=== PATIENT | female | born 1985 | race Caucasian/White ===

== ENCOUNTER 2018-03-04 09:44 | Inpatient (IN) ==
--- NOTE | 2018-03-04 10:43 | P.HPOB ---
History of Present Illness Service: Obstetrics Primary Care Physician: No Primary Care Physician Chief Complaint: admit to antepartum for further workup of cholestasis of History of Present Illness: 32 yo (history of twin vaginal delivery 07/2013) admitted due to new diagnosis of cholestasis of , is with di-di twins (product of IVF, as was first ) with EDC 04/19/18, 33w3d today. At office visit pt c/o severe itching of hands and feet, at that visit also new proteinuria on urine dip, concern for cholestasis of . Labs ordered, resulted today showing elevated bile acids 26.1 umol/L, elevated cholic acid 20 umol/L and elevated chenodeoxycholic acid, 6.1 umol/L. LFTs also abnormal with AST 342 U/L, ALT 462 U/L, alk phos 204 U/L. Pt was started on oral ursodiol BID last week, today pt states this has not improved symptoms, if anything she feels worse. Sent to L&D for AP admission, steroid administration, MFM consult , growth scan and BPP. Weeks Gestation:: 33 Para: 2 (di/di twins delivered vaginally 07/2013) : 1 Last menstrual period: 07/13/17 Total # of Miscarriage(s): 0 Total # of Abortions (Spontaneous & Elective): 0 - Inpatient Certification I certify that the inpatient services were ordered in accordance with Medicare regulations governing the order. This includes certification that hospital inpatient services are reasonable and necessary and in the case of services not specified as inpatient-only under 42 CFR 419.22(n), that they are appropriately provided as inpatient services in accordance to with the 2-midnight benchmark under 43 CFR 412.3(e) Estimated Total Length of Stay (Days): 7 Plans for Post Hospital Care: Home Review of Systems All other systems reviewed negative except as stated in HPI PMFSH - Medical History Medical History: Medical History (Last Updated 03/04/18 @ 10:37 by Lily Russell MD) History of infertility - Surgical History Surgical History: Surgical History (Last Updated 01/10/18 @ 13:06 by Reid Owens MD) Gastric bypass status for obesity History of tonsillectomy Hx of cholecystectomy - Social History I have reviewed the patient's Social History: Yes - Tobacco History Second Hand Smoke Exposure: No Tobacco Use In Past 30 Days: No Smoking Status: Never smoker - Alcohol History How Often Do You Have a Drink Containing Alcohol: Never - Substance Use History Substance History: No History of Abuse - Travel History History of Recent Travel: No Recent Travel in the [place] Within the Last 8 Weeks: No Recent Travel Out of the Country Within the Last 8 Weeks: No Medications and Allergies Active Medications: Active Medications Acetaminophen (Tylenol) 650 mg PO Q4H PRN PRN Reason: PAIN SCALE 1 TO 5 Lactated Ringer's (Lr 1000 Ml Inj) 1,000 mls @ 100 mls/hr IV.CONT .Q10H DEE Ondansetron HCl (Zofran Odt) 4 mg PO Q6H PRN PRN Reason: NAUSEA OR VOMITING Vit/Calcium/Iron/Folic Ac (Stuartnatal Plus 3) 1 tab PO DAILY DEE Sodium Chloride (Ns Flush) 2 ml IV.FLUSH BID DEE Sodium Chloride (Ns Flush) 2 ml IV.FLUSH PRN PRN PRN Reason: FLUSH AFTER USING IV ACCESS Allergies Allergy/AdvReac Type Severity Reaction Status Date / Time No Known Allergies Allergy Unknown none Uncoded 03/04/18 10:08 Home Medications Medication Instructions Recorded Confirmed Type ursodiol BID 03/04/18 History Exam Vital signs: Intake & Output 03/03/18 03/04/18 03/04/18 18:59 06:59 18:59 Weight 225 kg - Constitutional mild distress (from itching) - Routine HEENT Exam Head: Present: normocephalic, atraumatic Eye: Present: EOMI ENT: Present: mucous membranes moist, dentition normal - Routine Neck Exam Present: supple, full ROM - Routine Chest/Breast/Axilla Exam Chest wall: Absent: tenderness, mass - Routine Respiratory Exam Absent: accessory muscle use, respiratory distress - Routine Cardiovascular Exam Present: RRR. Absent: bradycardia - Routine Abdominal Exam Comments: gravid, larger than dates c/w twins - Routine Extremities Exam Absent: cyanosis, clubbing - Routine Skin Exam Present: intact. Absent: jaundice - Routine Neurological Exam Present: alert, oriented X3 Results - Labs Group B Strep: unknown Caprini VTE Risk Assessment Caprini VTE Risk Assessment: No/Low Risk (score <= 1) VTE Pharmacological Exception Reason: Epidural catheter Caprini Risk Assessment Model: Point Value = 1 Point Value = 2 Point Value = 3 Point Value = 5 Age 41-60 Minor surgery BMI > 25 kg/m2 Swollen legs Varicose veins or History of unexplained or recurrent spontaneous Oral contraceptives or hormone replacement Sepsis (< 1 month) Serious lung disease, including pneumonia (< 1 month) Abnormal pulmonary function Acute myocardial infarction Congestive heart failure (< 1 month) History of inflammatory bowel disease Medical patient at bed rest Age 61-74 Arthroscopic surgery Major open surgery (> 45 min) Laparoscopic surgery (> 45 min) Malignancy Confined to bed (> 72 hours) Immobilizing plaster cast Central venous access Age >= 75 History of VTE Family history of VTE Factor V Leiden Prothrombin [id number] Lupus anticoagulant Anticardiolipin antibodies Elevated serum homocysteine Heparin-induced thrombocytopenia Other congenital or acquired thrombophilia Stroke (< 1 month) Elective arthroplasty Hip, pelvis, or leg fracture Acute spinal cord injury (< 1 month) Prophylaxis Regimen: Total Risk Factor Score Risk Level Prophylaxis Regimen 0-1 Low Early ambulation 2 Moderate Order ONE of the following: *Sequential Compression Device (SCD) *Heparin 5000 units SQ BID 3-4 Higher Order ONE of the following medications: *Heparin 5000 units SQ TID *Enoxaparin/Lovenox 40 mg SQ daily (WT < 150 kg, CrCl > 30 mL/min) *Enoxaparin/Lovenox 30 mg SQ daily (WT < 150 kg, CrCl > 10-29 mL/min) *Enoxaparin/Lovenox 30 mg SQ BID (WT < 150 kg, CrCl > 30 mL/min) AND/OR *Sequential Compression Device (SCD) 5 or more Highest Order ONE of the following medications: *Heparin 5000 units SQ TID (Preferred with Epidurals) *Enoxaparin/Lovenox 40 mg SQ daily (WT < 150 kg, CrCl > 30 mL/min) *Enoxaparin/Lovenox 30 mg SQ daily (WT < 150 kg, CrCl > 10-29 mL/min) *Enoxaparin/Lovenox 30 mg SQ BID (WT < 150 kg, CrCl > 30 mL/min) AND *Sequential Compression Device (SCD) Assessment and Plan - Diagnosis (1) Cholestasis during Code(s): O26.619 - Liver and biliary tract disorders in , unspecified trimester; K83.1 - Obstruction of bile duct Status: Acute (2) Dichorionic diamniotic twin gestation Code(s): O30.049 - Twin , dichorionic/diamniotic, unspecified trimester Status: Acute (3) History of in vitro fertilization Code(s): Z98.890 - Other specified postprocedural states Status: Chronic - Plan 32 yo with di/di twin at 33w4d, EDC 04/18/18 by IVF, admit for cholestasis of with severe symptoms. 1) cholestasis of : repeat labs ordered on admission, bile acids 26.1 on 02/25/18, AST 342, ALT 463; d/w pt risks to fetuses and recommendation for early delivery, based on severity may need to be delivered within next few days ; MFM consult ordered, continue Urosodiol and increase to TID; NPO for now pending MFM recommendations; betamethasone ordered 2) di/di twin , product of IVF: this is pt's second successful di/di twin IVF ; last growth 02/19/18 in office showed A 52%tile(vertex) & B 69%tile (breech); pt desires with BTL, consents signed 3) GBS unknown, will order on admission 4) PPX: SCDs ordered 5) status: NST pending on admission, BPP ordered, for growth scan with MFM today 6) dispo: does not meet discharge criteria
[2018-03-04] MEDS: Betamethasone Sod Phos/Acetate Inj 30 MG/5 ML Vial IM SCH (11:42)
[2018-03-04 12:20] LABS: Baso % (Auto) 0.2 % (0.0-2.0); Eos % (Auto) 0.4 % (0.0-4.0); Hematocrit 44.6 % (35.0-46.0); Hemoglobin 14.9 gm/dL (11.6-15.3); Lymph # (Auto) 1.7 th/mm3 (1.0-4.8); Lymph % (Auto) 19.9 % (9.0-44.0); Mean Corpuscular HGB Conc 33.4 % (32.0-36.0); Mean Corpuscular Hemoglobin 31.6 pg (27.0-34.0); Mean Corpuscular Volume 94.7 fL (80.0-100.0); Mean Platelet Volume 9.9 fL (7.0-11.0); Mono # (Auto) 0.5 th/mm3 (0.0-0.9); Neut # (Auto) 6.3 th/mm3 (1.8-7.7); Neut % (Auto) 73.5 % (16.0-70.0); Platelet Count 188 th/mm3 (150-450); Red Blood Count 4.71 mil/mm3 (4.00-5.30); Red Cell Distribution Width 14.2 % (11.6-17.2); White Blood Count 8.6 th/mm3 (4.0-11.0)
[2018-03-04 12:44] LABS: Albumin 2.3 g/dL (3.4-5.0); Anion Gap 10 meq/L (5-15); Aspartate Aminotransferase 271 U/L (15-37); Blood Urea Nitrogen 4 mg/dL (7-18); Calcium 8.7 mg/dL (8.5-10.1); Carbon Dioxide 22.9 meq/L (21.0-32.0); Chloride 105 meq/L (98-107); Glomerular Filtration Rate Greater Than 89 mL/min (>89); Glucose,Random 64 mg/dL (74-106); Potassium 4.6 meq/L (3.5-5.1); Sodium 138 meq/L (136-145)
[2018-03-04 12:45] LABS: Alanine Aminotransferase 389 U/L (10-53); Uric Acid 4.6 mg/dl (2.6-6.0)
[2018-03-04 12:47] LABS: Alkaline Phosphatase 223 U/L (45-117); Total Protein 6.7 g/dL (6.4-8.2)
[2018-03-04 12:58] LABS: Bacteria,Urine Occasional /hpf; Bilirubin,Urine Negative (Negative); Clarity,Urine Hazy (Clear); Color,Urine Yellow (Yellw/Straw); Glucose,Urine (UA) Negative (Negative); Leukocyte Esterase,Urine Negative (Negative); Mucus,Urine Few /lpf (Occasional); Nitrite,Urine Negative (Negative); Specific Gravity,Urine 1.002 (1.002-1.035); Squamous Epithelial Cell,Urine 3 /hpf (0-5)
[2018-03-04 12:59] LABS: Amphetamine Urine With Conf Neg (Neg); Benzodiazepine Urine With Conf Neg (Neg)
[2018-03-04] MEDS: Acetaminophen 325 MG Tablet PO PRN ×2 (15:25→21:24)
--- NOTE | 2018-03-04 17:35 | P.OBGPN ---
To bedside to review plan of care with patient and family, at bedside also. LFTs remain elevated, pt remains symptomatic despite oral ursodiol bid, now tid. BPP 8/8 x 2 and reactive NST x 2 today, currently on continuous monitoring. Fetus A (female) 14%tile, 23% discordance on growth sono today. A vertex, B transverse. Pt desires and tubal ligation for delivery mode. Michel irregularly, SVE closed/50/-2 midposition. NICU team has recommended IV magnesium sulfate for neuroprotection, ordered. Pt tearful at thought of early delivery but voices understanding of severity of cholestasis and risk to both maternal and health. Consents signed for surgery, likely for AM with Dr. Leach. For MFM consult 03/05/18 AM.
--- NOTE | 2018-03-04 18:37 | P.OBANTE ---
Subjective Interval History: reviewed plans for surgery -- section at 10 am on unless desires sooner has consult in the am doing better with all this information now that sister is here. reveiwed expectations of surgery. Objective Vital Signs and I&O: Vital Signs 03/04/18 10:15 03/04/18 10:45 03/04/18 11:00 Temperature 98.5 F Pulse Rate 87 Respiratory Rate 18 17 Blood Pressure 123/84 03/04/18 12:30 03/04/18 13:27 03/04/18 14:30 Temperature Pulse Rate Respiratory Rate 19 18 17 Blood Pressure 03/04/18 14:41 03/04/18 16:30 03/04/18 17:00 Temperature 97.9 F Pulse Rate 139 H Respiratory Rate 18 17 18 Blood Pressure 135/87 Intake & Output 03/03/18 03/04/18 03/04/18 18:59 06:59 18:59 Weight 102.058 kg Lab and Micro Results: Laboratory Results - last 24 hr 03/04/18 03/04/18 03/04/18 10:43 10:43 11:06 WBC 8.6 RBC 4.71 Hgb 14.9 Hct 44.6 MCV 94.7 MCH 31.6 MCHC 33.4 RDW 14.2 Plt Count 188 MPV 9.9 Neut % (Auto) 73.5 H Lymph % (Auto) 19.9 [place] % (Auto) 6.0 Eos % (Auto) 0.4 Baso % (Auto) 0.2 Neut # (Auto) 6.3 Lymph # (Auto) 1.7 [place] # (Auto) 0.5 Eos # (Auto) 0.0 Baso # (Auto) 0.0 WBC Differential . Differential Comment Auto diff final Sodium 138 Potassium 4.6 Chloride 105 Carbon Dioxide 22.9 Anion Gap 10 BUN 4 L Creatinine 0.49 L Estimated GFR Greater than 89 Random Glucose 64 L Uric Acid 4.6 Calcium 8.7 Total Bilirubin 0.7 Direct Bilirubin 0.4 H Indirect Bilirubin 0.3 AST 271 H ALT 389 H Alkaline Phosphatase 223 H Total Protein 6.7 Albumin 2.3 L Urine Color Urine Clarity Urine pH Ur Specific [place] Urine Protein Urine Glucose (UA) Urine Ketones Urine Occult Blood Urine Nitrate Urine Bilirubin Urine Urobilinogen Ur Leukocyte Esterase Urine RBC Urine WBC Ur Squamous Epith Cells Urine Bacteria Urine Mucus Micro UA Comment Ur Microscopic Review Urine Culture Comments Urine Opiates Screen Ur Barbiturates Screen Ur Amphetamine Screen U Benzodiazepines Scrn Urine Cocaine Screen U Cannabinoids Screen Group B Strep (PCR) Negative 03/04/18 03/04/18 11:06 11:06 WBC RBC Hgb Hct MCV MCH MCHC RDW Plt Count MPV Neut % (Auto) Lymph % (Auto) [place] % (Auto) Eos % (Auto) Baso % (Auto) Neut # (Auto) Lymph # (Auto) [place] # (Auto) Eos # (Auto) Baso # (Auto) WBC Differential Differential Comment Sodium Potassium Chloride Carbon Dioxide Anion Gap BUN Creatinine Estimated GFR Random Glucose Uric Acid Calcium Total Bilirubin Direct Bilirubin Indirect Bilirubin AST ALT Alkaline Phosphatase Total Protein Albumin Urine Color Yellow Urine Clarity Hazy H Urine pH 7.0 Ur Specific [place] 1.002 Urine Protein Negative Urine Glucose (UA) Negative Urine Ketones Negative Urine Occult Blood Negative Urine Nitrate Negative Urine Bilirubin Negative Urine Urobilinogen Less than 2 Ur Leukocyte Esterase Negative Urine RBC Less than 1 Urine WBC 1 Ur Squamous Epith Cells 3 Urine Bacteria Occasional H Urine Mucus Few H Micro UA Comment Culture not ind Ur Microscopic Review Not Reportable Urine Culture Comments Culture not ind Urine Opiates Screen Neg Ur Barbiturates Screen Neg Ur Amphetamine Screen Neg U Benzodiazepines Scrn Neg Urine Cocaine Screen Neg U Cannabinoids Screen Neg Group B Strep (PCR) Physical Exam: GENERAL: Well-nourished, well-developed patient. CARDIOVASCULAR: Regular rate and rhythm without murmurs, gallops, or rubs. RESPIRATORY: Breath sounds equal bilaterally. No accessory muscle use. ABDOMEN/GI: Abdomen soft, non-tender. Fundus: [-] GENITOURINARY: External Genitalia: intact and normal in appearance Cervix: [-] Dilatation: [-] Effacement: [-] Station: [-] Presentation: [-] Membranes: [-] Uterine Contractions: [-] FHT's: Category: [-] Baseline: [-] Reactive: [-] Variability: [-] Decels: [-] EXTREMITIES: No cyanosis or edema, non-tender, without signs of DVT. Assessment and Plan - Diagnosis (1) Cholestasis during Code(s): O26.619 - Liver and biliary tract disorders in , unspecified trimester; K83.1 - Obstruction of bile duct Status: Acute (2) Dichorionic diamniotic twin gestation Code(s): O30.049 - Twin , dichorionic/diamniotic, unspecified trimester Status: Acute (3) History of in vitro fertilization Code(s): Z98.890 - Other specified postprocedural states Status: Chronic - Plan 32 yo with di/di twin at 33w4d, EDC 04/18/18 by IVF, admit for cholestasis of with severe symptoms. 1) cholestasis of : repeat labs ordered on admission, bile acids 26.1 on 02/25/18, AST 342, ALT 463; d/w pt risks to fetuses and recommendation for early delivery, based on severity may need to be delivered within next few days ; MFM consult ordered, continue Urosodiol and increase to TID; NPO for now pending MFM recommendations; betamethasone ordered 2) di/di twin , product of IVF: this is pt's second successful di/di twin IVF ; last growth 02/19/18 in office showed A 52%tile(vertex) & B 69%tile (breech); pt desires with BTL, consents signed 3) GBS unknown, will order on admission 4) PPX: SCDs ordered 5) status: NST pending on admission, BPP ordered, for growth scan with MFM today 6) dispo: does not meet discharge criteria
[2018-03-04] MEDS: Mag Sulf/Water 40 gm/1000 ml 40 GM/1,000 ML BAG IV.CONT SCH (18:43)
[2018-03-04] MEDS ORDERED: Lidocaine 2% Jelly 5 ML Syringe TOPICAL SCH (22:15)
[2018-03-05] MEDS: Acetaminophen 325 MG Tablet PO PRN ×2 (01:28→15:03)
[2018-03-05] MEDS ORDERED: Morphine Inj 4 MG/ML Vial IV.PUSH ONE (05:01)
--- NOTE | 2018-03-05 05:01 | P.OBANTE ---
Subjective Interval History: I have a bad headache since on the magnesium. Tylenol does not work Babies are moving well No scotoma or RUQ pain. I am having a C/S tomorrow. Objective Vital Signs and I&O: Vital Signs 03/04/18 10:15 03/04/18 10:45 03/04/18 11:00 Temperature 98.5 F Pulse Rate 87 Respiratory Rate 18 17 Blood Pressure 123/84 03/04/18 12:30 03/04/18 13:27 03/04/18 14:30 Temperature Pulse Rate Respiratory Rate 19 18 17 Blood Pressure 03/04/18 14:41 03/04/18 16:30 03/04/18 17:00 Temperature 97.9 F Pulse Rate 139 H Respiratory Rate 18 17 18 Blood Pressure 135/87 03/04/18 18:50 03/04/18 18:55 03/04/18 19:00 Temperature 98.0 F Pulse Rate 121 H 105 H Respiratory Rate 17 Blood Pressure 122/88 03/04/18 19:05 03/04/18 19:10 03/04/18 19:15 Temperature Pulse Rate 103 H 109 H 102 H Respiratory Rate Blood Pressure 131/89 122/100 H 03/04/18 19:55 03/04/18 20:05 03/04/18 20:25 Temperature Pulse Rate 100 H 106 H 96 H Respiratory Rate 18 Blood Pressure 136/78 143/88 H 03/04/18 20:55 03/04/18 22:20 03/04/18 22:28 Temperature 98.1 F Pulse Rate 109 H 99 H 90 Respiratory Rate 16 Blood Pressure 140/85 133/79 03/04/18 22:35 03/04/18 22:40 03/04/18 22:45 Temperature Pulse Rate 106 H 110 H 112 H Respiratory Rate Blood Pressure 113/68 03/04/18 22:50 03/04/18 22:55 03/04/18 23:50 Temperature Pulse Rate 103 H 113 H 109 H Respiratory Rate Blood Pressure 126/76 03/05/18 00:00 03/05/18 00:10 03/05/18 00:15 Temperature Pulse Rate 94 H 110 H 105 H Respiratory Rate 18 Blood Pressure 140/70 03/05/18 00:25 03/05/18 00:40 03/05/18 00:45 Temperature Pulse Rate 97 H 116 H 92 H Respiratory Rate Blood Pressure 119/72 03/05/18 00:55 03/05/18 02:00 03/05/18 02:30 Temperature Pulse Rate 91 H 102 H 102 H Respiratory Rate Blood Pressure 120/83 136/87 140/84 03/05/18 03:00 03/05/18 04:00 Temperature Pulse Rate 122 H 88 Respiratory Rate Blood Pressure 133/83 130/80 Intake & Output 03/04/18 03/04/18 03/05/18 06:59 18:59 06:59 Intake Total 1000 / 1000 1000 / 1000 Balance 1000 / 1000 1000 / 1000 Weight 102.058 kg Intake: IV 1000 / 1000 1000 / 1000 LR 1000 mL Inj 1,000 ML @ 100 1000 / 1000 1000 / 1000 mls/hr IV.CONT .Q10H [facility] Rx[facility] [id number] Lab and Micro Results: Laboratory Results - last 24 hr 03/04/18 03/04/18 03/04/18 10:43 10:43 11:06 WBC 8.6 RBC 4.71 Hgb 14.9 Hct 44.6 MCV 94.7 MCH 31.6 MCHC 33.4 RDW 14.2 Plt Count 188 MPV 9.9 Neut % (Auto) 73.5 H Lymph % (Auto) 19.9 [place] % (Auto) 6.0 Eos % (Auto) 0.4 Baso % (Auto) 0.2 Neut # (Auto) 6.3 Lymph # (Auto) 1.7 [place] # (Auto) 0.5 Eos # (Auto) 0.0 Baso # (Auto) 0.0 WBC Differential . Differential Comment Auto diff final Sodium 138 Potassium 4.6 Chloride 105 Carbon Dioxide 22.9 Anion Gap 10 BUN 4 L Creatinine 0.49 L Estimated GFR Greater than 89 Random Glucose 64 L Uric Acid 4.6 Calcium 8.7 Total Bilirubin 0.7 Direct Bilirubin 0.4 H Indirect Bilirubin 0.3 AST 271 H ALT 389 H Alkaline Phosphatase 223 H Total Protein 6.7 Albumin 2.3 L Urine Color Urine Clarity Urine pH Ur Specific [place] Urine Protein Urine Glucose (UA) Urine Ketones Urine Occult Blood Urine Nitrate Urine Bilirubin Urine Urobilinogen Ur Leukocyte Esterase Urine RBC Urine WBC Ur Squamous Epith Cells Urine Bacteria Urine Mucus Micro UA Comment Ur Microscopic Review Urine Culture Comments Urine Opiates Screen Ur Barbiturates Screen Ur Amphetamine Screen U Benzodiazepines Scrn Urine Cocaine Screen U Cannabinoids Screen Group B Strep (PCR) Negative 03/04/18 03/04/18 11:06 11:06 WBC RBC Hgb Hct MCV MCH MCHC RDW Plt Count MPV Neut % (Auto) Lymph % (Auto) [place] % (Auto) Eos % (Auto) Baso % (Auto) Neut # (Auto) Lymph # (Auto) [place] # (Auto) Eos # (Auto) Baso # (Auto) WBC Differential Differential Comment Sodium Potassium Chloride Carbon Dioxide Anion Gap BUN Creatinine Estimated GFR Random Glucose Uric Acid Calcium Total Bilirubin Direct Bilirubin Indirect Bilirubin AST ALT Alkaline Phosphatase Total Protein Albumin Urine Color Yellow Urine Clarity Hazy H Urine pH 7.0 Ur Specific [place] 1.002 Urine Protein Negative Urine Glucose (UA) Negative Urine Ketones Negative Urine Occult Blood Negative Urine Nitrate Negative Urine Bilirubin Negative Urine Urobilinogen Less than 2 Ur Leukocyte Esterase Negative Urine RBC Less than 1 Urine WBC 1 Ur Squamous Epith Cells 3 Urine Bacteria Occasional H Urine Mucus Few H Micro UA Comment Culture not ind Ur Microscopic Review Not Reportable Urine Culture Comments Culture not ind Urine Opiates Screen Neg Ur Barbiturates Screen Neg Ur Amphetamine Screen Neg U Benzodiazepines Scrn Neg Urine Cocaine Screen Neg U Cannabinoids Screen Neg Group B Strep (PCR) Physical Exam: GENERAL: Well-nourished, well-developed patient. CARDIOVASCULAR: Regular rate and rhythm without murmurs, gallops, or rubs. RESPIRATORY: Breath sounds equal bilaterally. No accessory muscle use. ABDOMEN/GI: Abdomen soft, non-tender. Fundus: non tender. GENITOURINARY: External Genitalia: intact and normal in appearance EXTREMITIES: No cyanosis or edema, non-tender, without signs of DVT. DTRs are + 2 and equal. Assessment and Plan - Plan 32 yo with di/di twin at 33w5d, EDC 04/18/18 by IVF, admit for cholestasis of with severe symptoms. 1) cholestasis of : repeat labs ordered on admission, bile acids 26.1 on 02/25/18, AST 342, ALT 463; d/w pt risks to fetuses and recommendation for early delivery, based on severity may need to be delivered within next few days ; MFM consult ordered, continue Urosodiol and increase to TID; NPO for now pending MFM recommendations 2) di/di twin , product of IVF: pt desires with BTL, consents signed. Will deliver today if M states deliver now. 3) GBS unknown, will order on admission 4) PPX: SCDs ordered 5) status: Strip is Cat 1 for both babies. 6) dispo: does not meet discharge criteria Will check am labs and follow up on [facility] consult later today.
[2018-03-05 06:13] LABS: Albumin 2.4 g/dL (3.4-5.0)
[2018-03-05 06:16] LABS: Total Protein 6.4 g/dL (6.4-8.2)
[2018-03-05] MEDS: Betamethasone Sod Phos/Acetate Inj 30 MG/5 ML Vial IM SCH (08:25)
[2018-03-05] MEDS: Prenatal Vit/Ca/Iron/Folic Acid Tablet PO SCH (08:26)
[2018-03-05 09:45] LABS: Baso % (Auto) 0.4 % (0.0-2.0); Hematocrit 39.6 % (35.0-46.0); Hemoglobin 13.4 gm/dL (11.6-15.3); Lymph # (Auto) 1.4 th/mm3 (1.0-4.8); Mean Corpuscular HGB Conc 33.8 % (32.0-36.0); Mean Corpuscular Hemoglobin 31.3 pg (27.0-34.0); Mean Corpuscular Volume 92.8 fL (80.0-100.0); Mean Platelet Volume 9.4 fL (7.0-11.0); Mono # (Auto) 0.6 th/mm3 (0.0-0.9); Mono % (Auto) 5.9 % (0.0-8.0); Neut # (Auto) 8.5 th/mm3 (1.8-7.7); Neut % (Auto) 80.7 % (16.0-70.0); Platelet Count 157 th/mm3 (150-450); Red Blood Count 4.27 mil/mm3 (4.00-5.30); Red Cell Distribution Width 14.1 % (11.6-17.2); White Blood Count 10.6 th/mm3 (4.0-11.0)
[2018-03-05] MEDS ORDERED: Butalbital/APAP/Caff 50/325/40 MG Tablet PO ONE (10:00)
--- NOTE | 2018-03-05 10:42 | P.OBANTE ---
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 She has a headache. No nausea, vomiting, blurred vision or RUQT. No leaking or bleeding Notes GFM. Objective Vital Signs and I&O: Vital Signs 03/04/18 10:45 03/04/18 11:00 03/04/18 12:30 Temperature 98.5 F Pulse Rate Respiratory Rate 18 17 19 Blood Pressure 03/04/18 13:27 03/04/18 14:30 03/04/18 14:41 Temperature 97.9 F Pulse Rate 139 H Respiratory Rate 18 17 18 Blood Pressure 135/87 03/04/18 16:30 03/04/18 17:00 03/04/18 18:50 Temperature Pulse Rate 121 H Respiratory Rate 17 18 Blood Pressure 122/88 03/04/18 18:55 03/04/18 19:00 03/04/18 19:05 Temperature 98.0 F Pulse Rate 105 H 103 H Respiratory Rate 17 Blood Pressure 03/04/18 19:10 03/04/18 19:15 03/04/18 19:55 Temperature Pulse Rate 109 H 102 H 100 H Respiratory Rate 18 Blood Pressure 131/89 122/100 H 136/78 03/04/18 20:05 03/04/18 20:25 03/04/18 20:55 Temperature Pulse Rate 106 H 96 H 109 H Respiratory Rate Blood Pressure 143/88 H 140/85 03/04/18 22:20 03/04/18 22:28 03/04/18 22:35 Temperature 98.1 F Pulse Rate 99 H 90 106 H Respiratory Rate 16 Blood Pressure 133/79 113/68 03/04/18 22:40 03/04/18 22:45 03/04/18 22:50 Temperature Pulse Rate 110 H 112 H 103 H Respiratory Rate Blood Pressure 03/04/18 22:55 03/04/18 23:50 03/05/18 00:00 Temperature Pulse Rate 113 H 109 H 94 H Respiratory Rate 18 Blood Pressure 126/76 03/05/18 00:10 03/05/18 00:15 03/05/18 00:25 Temperature Pulse Rate 110 H 105 H 97 H Respiratory Rate Blood Pressure 140/70 03/05/18 00:40 03/05/18 00:45 10/24/18 00:55 Temperature Pulse Rate 116 H 92 H 91 H Respiratory Rate Blood Pressure 119/72 120/83 03/05/18 02:00 03/05/18 02:30 03/05/18 03:00 Temperature Pulse Rate 102 H 102 H 122 H Respiratory Rate Blood Pressure 136/87 140/84 133/83 03/05/18 04:00 03/05/18 05:22 03/05/18 06:05 Temperature Pulse Rate 88 108 H 109 H Respiratory Rate Blood Pressure 130/80 129/69 03/05/18 06:21 03/05/18 07:16 03/05/18 08:30 Temperature Pulse Rate 108 H Respiratory Rate 17 18 Blood Pressure 132/87 03/05/18 08:35 Temperature Pulse Rate 109 H Respiratory Rate Blood Pressure 121/79 Intake & Output 03/04/18 03/05/18 03/05/18 18:59 06:59 18:59 Intake Total 1000 / 1000 1000 / 1000 Balance 1000 / 1000 1000 / 1000 Weight 102.058 kg Intake: IV 1000 / 1000 1000 / 1000 LR 1000 mL Inj 1,000 ML @ 100 1000 / 1000 1000 / 1000 mls/hr IV.CONT .Q10H [facility] Rx#: [id number] Lab and Micro Results: Laboratory Results - last 24 hr 03/04/18 03/04/18 03/04/18 10:43 10:43 11:06 WBC 8.6 RBC 4.71 Hgb 14.9 Hct 44.6 MCV 94.7 MCH 31.6 MCHC 33.4 RDW 14.2 Plt Count 188 MPV 9.9 Neut % (Auto) 73.5 H Lymph % (Auto) 19.9 [place] % (Auto) 6.0 Eos % (Auto) 0.4 Baso % (Auto) 0.2 Neut # (Auto) 6.3 Lymph # (Auto) 1.7 [place] # (Auto) 0.5 Eos # (Auto) 0.0 Baso # (Auto) 0.0 WBC Differential . Differential Comment Auto diff final Sodium 138 Potassium 4.6 Chloride 105 Carbon Dioxide 22.9 Anion Gap 10 BUN 4 L Creatinine 0.49 L Estimated GFR Greater than 89 Random Glucose 64 L Uric Acid 4.6 Calcium 8.7 Total Bilirubin 0.7 Direct Bilirubin 0.4 H Indirect Bilirubin 0.3 AST 271 H ALT 389 H Alkaline Phosphatase 223 H Total Protein 6.7 Albumin 2.3 L Urine Color Urine Clarity Urine pH Ur Specific [place] Urine Protein Urine Glucose (UA) Urine Ketones Urine Occult Blood Urine Nitrate Urine Bilirubin Urine Urobilinogen Ur Leukocyte Esterase Urine RBC Urine WBC Ur Squamous Epith Cells Urine Bacteria Urine Mucus Micro UA Comment Ur Microscopic Review Urine Culture Comments Urine Opiates Screen Ur Barbiturates Screen Ur Amphetamine Screen U Benzodiazepines Scrn Urine Cocaine Screen U Cannabinoids Screen Group B Strep (PCR) Negative Blood Type Blood Type Recheck Antibody Screen 03/04/18 03/04/18 03/05/18 11:06 11:06 05:01 WBC RBC Hgb Hct MCV MCH MCHC RDW Plt Count MPV Neut % (Auto) Lymph % (Auto) [place] % (Auto) Eos % (Auto) Baso % (Auto) Neut # (Auto) Lymph # (Auto) [place] # (Auto) Eos # (Auto) Baso # (Auto) WBC Differential Differential Comment Sodium Potassium Chloride Carbon Dioxide Anion Gap BUN Creatinine Estimated GFR Random Glucose Uric Acid Calcium Total Bilirubin 0.8 Direct Bilirubin 0.3 H Indirect Bilirubin 0.5 AST 366 H ALT 452 H Alkaline Phosphatase 214 H Total Protein 6.4 Albumin 2.4 L Urine Color Yellow Urine Clarity Hazy H Urine pH 7.0 Ur Specific [place] 1.002 Urine Protein Negative Urine Glucose (UA) Negative Urine Ketones Negative Urine Occult Blood Negative Urine Nitrate Negative Urine Bilirubin Negative Urine Urobilinogen Less than 2 Ur Leukocyte Esterase Negative Urine RBC Less than 1 Urine WBC 1 Ur Squamous Epith Cells 3 Urine Bacteria Occasional H Urine Mucus Few H Micro UA Comment Culture not ind Ur Microscopic Review Not Reportable Urine Culture Comments Culture not ind Urine Opiates Screen Neg Ur Barbiturates Screen Neg Ur Amphetamine Screen Neg U Benzodiazepines Scrn Neg Urine Cocaine Screen Neg U Cannabinoids Screen Neg Group B Strep (PCR) Blood Type Blood Type Recheck Antibody Screen 03/05/18 03/05/18 08:35 09:29 WBC 10.6 RBC 4.27 Hgb 13.4 Hct 39.6 MCV 92.8 MCH 31.3 MCHC 33.8 RDW 14.1 Plt Count 157 MPV 9.4 Neut % (Auto) 80.7 H Lymph % (Auto) 13.0 [place] % (Auto) 5.9 Eos % (Auto) 0.0 Baso % (Auto) 0.4 Neut # (Auto) 8.5 H Lymph # (Auto) 1.4 [place] # (Auto) 0.6 Eos # (Auto) 0.0 Baso # (Auto) 0.0 WBC Differential . Differential Comment Auto diff final Sodium Potassium Chloride Carbon Dioxide Anion Gap BUN Creatinine Estimated GFR Random Glucose Uric Acid Calcium Total Bilirubin Direct Bilirubin Indirect Bilirubin AST ALT Alkaline Phosphatase Total Protein Albumin Urine Color Urine Clarity Urine pH Ur Specific [place] Urine Protein Urine Glucose (UA) Urine Ketones Urine Occult Blood Urine Nitrate Urine Bilirubin Urine Urobilinogen Ur Leukocyte Esterase Urine RBC Urine WBC Ur Squamous Epith Cells Urine Bacteria Urine Mucus Micro UA Comment Ur Microscopic Review Urine Culture Comments Urine Opiates Screen Ur Barbiturates Screen Ur Amphetamine Screen U Benzodiazepines Scrn Urine Cocaine Screen U Cannabinoids Screen Group B Strep (PCR) Blood Type O Positive Blood Type Recheck Required Antibody Screen Negative Physical Exam: GENERAL: Well-nourished, well-developed patient. CARDIOVASCULAR: Regular rate and rhythm without murmurs, gallops, or rubs. RESPIRATORY: Breath sounds equal bilaterally. No accessory muscle use. ABDOMEN/GI: Abdomen soft, non-tender. strips category 1 no edema no RUQT normal DTRs EXTREMITIES: No cyanosis or edema, non-tender, without signs of DVT. Assessment and Plan - Diagnosis (1) Cholestasis during Code(s): O26.619 - Liver and biliary tract disorders in , unspecified trimester; K83.1 - Obstruction of bile duct Status: Acute (2) Dichorionic diamniotic twin gestation Code(s): O30.049 - Twin , dichorionic/diamniotic, unspecified trimester Status: Acute (3) History of in vitro fertilization Code(s): Z98.890 - Other specified postprocedural states Status: Chronic - Plan 32 yo with di/di twin at 33w5d, EDC 04/18/18 by IVF, admit for cholestasis of with severe symptoms. 1) cholestasis of : repeat labs ordered on admission, bile acids 26.1 on 02/25/18, AST 342, ALT 463; d/w pt risks to fetuses and recommendation for early delivery, based on severity may need to be delivered within next few days ; MFM consult ordered, continue Urosodiol and increase to TID; NPO for now pending MFM recommendations 2) di/di twin , product of IVF: pt desires with BTL, consents signed. Will deliver today if [facility] states deliver now. 3) GBS unknown, will order on admission 4) PPX: SCDs ordered 5) status: Strip is Cat 1 for both babies. 6) dispo: does not meet discharge criteria Will check am labs and follow up on [facility] consult later today. 8:30 am Discussed case with perinatologist Dr. Schreiber. Discussed possibility of superimposed pre eclampsia as unlikely given normal blood pressures, lack of proteinuria. Not HELLP with normal platelets. Discussed primary liver condition as a possibility, given history of gastric bypass and increased risk of subsequent liver ischemia with . Has had gallbladder previously removed but will get ultrasound of liver. Dr. Schreiber does not feel that straight forward cholestasis of merits delivery before 37 weeks. However, he acknowledges that the LFTs are higher than with most cases of cholestasis of ; that there is growth discordancy exceeding 20%, and that with the history of gastric bypass a primary liver disease must be considered. Therefore agrees with section after this morning's dose of beta methasone has had 24 hours to effect lung maturity. Will get liver sonogram and repeat LFTs today. Will stick with section unless any signs of or maternal decompensation develop in the interim. discussed in extensive detail with Margaret and her family and they agree with plan of action. will give fioricet for her headache.
--- NOTE | 2018-03-05 11:00 | US ---
EXAM DATE: 03/05/2018 9:02 AM EDT AGE/SEX: 32 years / Female INDICATIONS: Abdominal pain. CLINICAL DATA: This is the patient's initial encounter. Patient reports that signs and symptoms have been present for 1 day and indicates a pain score of 4/10. MEDICAL/SURGICAL HISTORY: . RUQ pain. Infertility. Gastric bypass. Tonsillectomy. Cholecyste ctomy. COMPARISON: No prior exams available for comparison. MEASUREMENTS: Liver:__ 19.5 cm. Common Bile Duct:__ 3mm. Right Kidney:__ 11.4 x 6.1 x 5.3 cm. FINDINGS: Liver: Increased echotexture without focal lesion or ductal dilation. Portal Vein: Hepatopedal flow seen in portal vein. Common Duct: No intraluminal mass or stone visualized. Gallbladder: Surgically absent. Pancreas: Not well visualized. Right Kidney: Increased echotexture. No mass. Mild pelviectasis.. Other: None. CONCLUSION: 1. Mild increased hepatic echogenicity which may reflect hepatic steatosis or medical liver disease. 2. Slight increased renal echogenicity which may reflect medical renal disease. 3. Mild right renal pelviectasis without hydronephrosis. Electronically signed by: Pk Rader MD 03/05/2018 10:59 AM EDT
[2018-03-05] MEDS: Mag Sulf/Water 40 gm/1000 ml 40 GM/1,000 ML BAG IV.CONT SCH (15:02)
--- NOTE | 2018-03-05 18:25 | P.OBANTE ---
Subjective Interval History: Feeling much better with Magnesium discontinued and bearden out. Having regular dinner before NPO at midnight. No MCMULLEN, N, V, blurred vision or RUQT GFM noted. No leaking or bleeding Objective Vital Signs and I&O: Vital Signs 03/04/18 18:50 03/04/18 18:55 03/04/18 19:00 Temperature 98.0 F Pulse Rate 121 H 105 H Respiratory Rate 17 Blood Pressure 122/88 03/04/18 19:05 03/04/18 19:10 03/04/18 19:15 Temperature Pulse Rate 103 H 109 H 102 H Respiratory Rate Blood Pressure 131/89 122/100 H 03/04/18 19:55 03/04/18 20:05 03/04/18 20:25 Temperature Pulse Rate 100 H 106 H 96 H Respiratory Rate 18 Blood Pressure 136/78 143/88 H 03/04/18 20:55 03/04/18 22:20 03/04/18 22:28 Temperature 98.1 F Pulse Rate 109 H 99 H 90 Respiratory Rate 16 Blood Pressure 140/85 133/79 03/04/18 22:35 03/04/18 22:40 03/04/18 22:45 Temperature Pulse Rate 106 H 110 H 112 H Respiratory Rate Blood Pressure 113/68 03/04/18 22:50 03/04/18 22:55 03/04/18 23:50 Temperature Pulse Rate 103 H 113 H 109 H Respiratory Rate Blood Pressure 126/76 03/05/18 00:00 03/05/18 00:10 03/05/18 00:15 Temperature Pulse Rate 94 H 110 H 105 H Respiratory Rate 18 Blood Pressure 140/70 03/05/18 00:25 03/05/18 00:40 03/05/18 00:45 Temperature Pulse Rate 97 H 116 H 92 H Respiratory Rate Blood Pressure 119/72 03/05/18 00:55 03/05/18 02:00 03/05/18 02:30 Temperature Pulse Rate 91 H 102 H 102 H Respiratory Rate Blood Pressure 120/83 136/87 140/84 03/05/18 03:00 03/05/18 04:00 03/05/18 05:22 Temperature Pulse Rate 122 H 88 108 H Respiratory Rate Blood Pressure 133/83 130/80 129/69 03/05/18 06:05 03/05/18 06:21 03/05/18 07:16 Temperature Pulse Rate 109 H 108 H Respiratory Rate 17 Blood Pressure 132/87 03/05/18 08:30 03/05/18 08:35 03/05/18 11:30 Temperature Pulse Rate 109 H Respiratory Rate 18 18 Blood Pressure 121/79 03/05/18 12:30 03/05/18 13:23 03/05/18 13:30 Temperature 97.6 F Pulse Rate 94 H Respiratory Rate 17 17 Blood Pressure 137/73 03/05/18 14:30 03/05/18 15:03 03/05/18 15:20 Temperature Pulse Rate 94 H Respiratory Rate 18 18 Blood Pressure 135/67 03/05/18 16:30 Temperature 97.7 F Pulse Rate Respiratory Rate 17 Blood Pressure Intake & Output 03/04/18 03/05/18 03/05/18 18:59 06:59 18:59 Intake Total 1000 / 1000 1000 / 1000 1000 / 1000 Balance 1000 / 1000 1000 / 1000 1000 / 1000 Weight 102.058 kg Intake: IV 1000 / 1000 1000 / 1000 1000 / 1000 LR 1000 mL Inj 1,000 ML @ 100 1000 / 1000 1000 / 1000 mls/hr IV.CONT .Q10H [facility] Rx#: [id number] Magnesium Sulfate/Water 40 gm/ 1000 / 1000 1000 ml Premix 40 gm In 1,000 ml @ 2 GM/HR 50 mls/hr IV.CONT Q24H [facility] Rx#:[id number] Lab and Micro Results: Laboratory Results - last 24 hr 03/05/18 03/05/18 03/05/18 05:01 08:35 09:29 WBC 10.6 RBC 4.27 Hgb 13.4 Hct 39.6 MCV 92.8 MCH 31.3 MCHC 33.8 RDW 14.1 Plt Count 157 MPV 9.4 Neut % (Auto) 80.7 H Lymph % (Auto) 13.0 [place] % (Auto) 5.9 Eos % (Auto) 0.0 Baso % (Auto) 0.4 Neut # (Auto) 8.5 H Lymph # (Auto) 1.4 [place] # (Auto) 0.6 Eos # (Auto) 0.0 Baso # (Auto) 0.0 WBC Differential . Differential Comment Auto diff final Total Bilirubin 0.8 Direct Bilirubin 0.3 H Indirect Bilirubin 0.5 AST 366 H ALT 452 H Alkaline Phosphatase 214 H Total Protein 6.4 Albumin 2.4 L Blood Type O Positive Blood Type Recheck Required Antibody Screen Negative Physical Exam: GENERAL: Well-nourished, well-developed patient. CARDIOVASCULAR: Regular rate and rhythm without murmurs, gallops, or rubs. RESPIRATORY: Breath sounds equal bilaterally. No accessory muscle use. ABDOMEN/GI: Abdomen soft, non-tender. EXTREMITIES: No cyanosis or edema, non-tender, without signs of DVT. Strips category one x 2 normotensive plates 157 LFTS quite high being repeated tonight liver sonogram suggest primary liver condition as expected but no ischemia. Assessment and Plan - Diagnosis (1) Cholestasis during Code(s): O26.619 - Liver and biliary tract disorders in , unspecified trimester; K83.1 - Obstruction of bile duct Status: Acute (2) Dichorionic diamniotic twin gestation Code(s): O30.049 - Twin , dichorionic/diamniotic, unspecified trimester Status: Acute (3) History of in vitro fertilization Code(s): Z98.890 - Other specified postprocedural states Status: Chronic - Plan 32 yo with di/di twin at 33w5d, EDC 04/18/18 by IVF, admit for cholestasis of with severe symptoms. 1) cholestasis of : repeat labs ordered on admission, bile acids 26.1 on 02/25/18, AST 342, ALT 463; d/w pt risks to fetuses and recommendation for early delivery, based on severity may need to be delivered within next few days ; MFM consult ordered, continue Urosodiol and increase to TID; NPO for now pending MFM recommendations 2) di/di twin , product of IVF: pt desires with BTL, consents signed. Will deliver today if [facility] states deliver now. 3) GBS unknown, will order on admission 4) PPX: SCDs ordered 5) status: Strip is Cat 1 for both babies. 6) dispo: does not meet discharge criteria Will check am labs and follow up on [facility] consult later today. 8:30 am Discussed case with perinatologist Dr. Schreiber. Discussed possibility of superimposed pre eclampsia as unlikely given normal blood pressures, lack of proteinuria. Not HELLP with normal platelets. Discussed primary liver condition as a possibility, given history of gastric bypass and increased risk of subsequent liver ischemia with . Has had gallbladder previously removed but will get ultrasound of liver. Dr. Schreiber does not feel that straight forward cholestasis of merits delivery before 37 weeks. However, he acknowledges that the LFTs are higher than with most cases of cholestasis of ; that there is growth discordancy exceeding 20%, and that with the history of gastric bypass a primary liver disease must be considered. Therefore agrees with section after this morning's dose of beta methasone has had 24 hours to effect lung maturity. Will get liver sonogram and repeat LFTs today. Will stick with section unless any signs of or maternal decompensation develop in the interim. discussed in extensive detail with Margaret and her family and they agree with plan of action. will give fioricet for her headache. 03/05/18 18:00 condition stable and reasonable to wait until morning for section after 24 hours post second dose of steroids with bilateral salpingectomy planned for 10:00am risks, benefits, expectations have been reviewed.
[2018-03-05 21:22] LABS: Baso % (Auto) 0.4 % (0.0-2.0); Hematocrit 39.2 % (35.0-46.0); Hemoglobin 13.1 gm/dL (11.6-15.3); Lymph % (Auto) 10.4 % (9.0-44.0); Mean Corpuscular HGB Conc 33.5 % (32.0-36.0); Mean Corpuscular Hemoglobin 31.1 pg (27.0-34.0); Mean Corpuscular Volume 92.8 fL (80.0-100.0); Mean Platelet Volume 9.3 fL (7.0-11.0); Mono # (Auto) 0.5 th/mm3 (0.0-0.9); Mono % (Auto) 5.6 % (0.0-8.0); Neut % (Auto) 83.6 % (16.0-70.0); Platelet Count 175 th/mm3 (150-450); Red Blood Count 4.22 mil/mm3 (4.00-5.30); Red Cell Distribution Width 14.4 % (11.6-17.2); White Blood Count 9.5 th/mm3 (4.0-11.0)
[2018-03-05 21:37] LABS: Albumin 2.3 g/dL (3.4-5.0)
[2018-03-05 21:38] LABS: Total Protein 6.2 g/dL (6.4-8.2)
[2018-03-06 05:48] LABS: Baso % (Auto) 0.1 % (0.0-2.0); Eos % (Auto) 0.1 % (0.0-4.0); Hematocrit 38.2 % (35.0-46.0); Hemoglobin 12.8 gm/dL (11.6-15.3); Lymph # (Auto) 1.5 th/mm3 (1.0-4.8); Lymph % (Auto) 16.6 % (9.0-44.0); Mean Corpuscular HGB Conc 33.4 % (32.0-36.0); Mean Corpuscular Hemoglobin 31.2 pg (27.0-34.0); Mean Corpuscular Volume 93.5 fL (80.0-100.0); Mean Platelet Volume 9.8 fL (7.0-11.0); Mono # (Auto) 0.7 th/mm3 (0.0-0.9); Mono % (Auto) 7.7 % (0.0-8.0); Neut # (Auto) 6.8 th/mm3 (1.8-7.7); Neut % (Auto) 75.5 % (16.0-70.0); Platelet Count 162 th/mm3 (150-450); Red Blood Count 4.09 mil/mm3 (4.00-5.30); Red Cell Distribution Width 14.3 % (11.6-17.2)
[2018-03-06] MEDS ORDERED: ceFAZolin 2 GM Premix Inj 2 GM/50 ML PIGGYBACK IV.SIG PRN (07:56)
[2018-03-06] MEDS ORDERED: Citric Acid/Sodium Citrate Liq 30 ML UDC PO SCH (08:00)
[2018-03-06] MEDS: Prenatal Vit/Ca/Iron/Folic Acid Tablet PO SCH (08:20)
[2018-03-06] MEDS ORDERED: Phenylephrine/NS 1000 MCG/10ML Syringe IV.PUSH ONE (08:41)
[2018-03-06 10:07] LABS: Cord Arterial Blood HCO3 25.7
[2018-03-06] MEDS ORDERED: Simethicone 80 MG Chew Tablet PO PRN (10:09)
[2018-03-06] MEDS ORDERED: Oxytocin 30 Units/500ml Premix 30 UNITS/500 ML BAG IV.SIG ONE (10:09)
[2018-03-06] MEDS ORDERED: Zolpidem Tartrate 5 MG Tablet PO PRN (10:09)
--- NOTE | 2018-03-06 10:09 | P.OBDELI ---
Procedure Note - Pre Op Diagnosis (1) Elevated LFTs (2) Cholestasis during (3) Dichorionic diamniotic twin gestation (4) History of in vitro fertilization - Post Op Diagnosis (1) delivery due to maternal disorder Performed by: Mckenzie Leach MD Procedure: Primary Low Transverse Section, Other (bilateral fimbriectomy) Indication for Delivery: Maternal medical problems Informed Consent Obtained: For anesthesia, For procedure, Other (BTL) Confirmed Correct: Patient, Procedure, Site, Time-out taken Anesthesia: Spinal Medication Prior to Procedure: As documented in eMAR Monitoring During Procedure: Blood pressure monitoring, Pulse oximetry Urinary Catheter: Inserted using sterile technique, To dependent drainage Sterile Preparation: Duraprep, In usual fashion Position: Supine with wedge to left side - Operative Features Skin Incision: Pfannenstiel Uterine Incision: Low transverse w/knife / blunt ext Membranes Ruptured: Artificially, Appearance of fluid (baby A had thick meconium and baby B hqad garza fluid clear) Presentation: Occiput anterior, Breech Status of : Viable, Cord blood, Umbilical cord, Nursery present Placenta Delivered: Intact, Sent to pathology Medications: Antibiotics, Oxytocin Estimated blood loss (mL): 500 Procedure Tolerated: Well Maternal Condition: Stable Baby Condition: Stable - Infant Infant: Multiple Infant Female A Infant Delivery Date: 03/06/18 Weight: 2.07 kg score (1 min): 9 Infant Male B Infant Delivery Date: 03/06/18 Weight: 5 kg score (1 min): 8 score (5 min): 9
[2018-03-06 10:10] LABS: Cord Arterial Blood HCO3 25.1
[2018-03-06] MEDS ORDERED: HYDROmorphone PF Inj 2 MG/ML Vial ONE (10:34)
[2018-03-06] MEDS ORDERED: HYDROmorphone PF Inj 1 MG/ML Ampul IV.PUSH PRN (11:49)
[2018-03-06] MEDS ORDERED: Naloxone Inj 0.4 MG/ML Vial IV.PUSH PRN (11:51)
[2018-03-06 15:00] VITALS: O2SAT 97
[2018-03-06] MEDS ORDERED: Oxytocin 30 Units/500ml Premix 30 UNITS/500 ML BAG IV.SIG PRN (15:09)
[2018-03-07 06:00] LABS: Albumin 1.9 g/dL (3.4-5.0)
[2018-03-07 06:02] LABS: Total Protein 4.8 g/dL (6.4-8.2)
--- NOTE | 2018-03-07 08:29 | P.PNOB ---
Subjective Post op day: 1 Interval history: POD#1, Stable, Did well with TORADOL over percocet, LFTs improving Objective Vital Signs/I&O: Vital Signs 03/06/18 10:00 03/06/18 10:17 03/06/18 10:19 Temperature 97.8 F Pulse Rate 71 67 Respiratory Rate 17 16 Blood Pressure 124/76 Pulse Oximetry 03/06/18 10:44 03/06/18 11:00 03/06/18 11:14 Temperature Pulse Rate 66 68 Respiratory Rate 17 16 17 Blood Pressure 136/86 128/73 Pulse Oximetry 03/06/18 14:58 03/06/18 15:20 03/06/18 20:19 Temperature 98.6 F 98.2 F 97.6 F Pulse Rate 65 65 82 Respiratory Rate 18 18 18 Blood Pressure 136/76 136/76 111/83 Pulse Oximetry 97 03/06/18 23:45 03/07/18 04:05 03/07/18 08:00 Temperature 98.4 F 98.1 F Pulse Rate 75 76 20 L Respiratory Rate 18 18 Blood Pressure 104/66 105/71 102/69 Pulse Oximetry 03/07/18 08:23 Temperature 97.6 F Pulse Rate Respiratory Rate 20 Blood Pressure Pulse Oximetry Intake & Output 03/06/18 03/07/18 03/07/18 18:59 06:59 18:59 Output Total 300 / 300 Balance -300 / -300 Output: Urine Amount (Catheter) 300 / 300 Indwelling Urethral Catheter 300 / 300 Result Diagrams: 03/06/18 04:56 03/04/18 10:43 Objective Remarks: GENERAL: Well-nourished, well-developed patient. CARDIOVASCULAR: Regular rate and rhythm without murmurs, gallops, or rubs. RESPIRATORY: Breath sounds equal bilaterally. No accessory muscle use. ABDOMEN/GI: Abdomen soft, non-tender, bowel sounds present. Incision: Clean, dry and intact. Fundus: Firm, non-tender at umbilicus. GENITOURINARY: Light to moderate bleeding. EXTREMITIES: No cyanosis or edema, non-tender, without signs of DVT. Medications and IVs: Active Medications Acetaminophen (Tylenol) 650 mg PO Q4H PRN PRN Reason: PAIN SCALE 1 TO 5 Last Admin: 03/05/18 15:03 Dose: 650 mg Calcium Gluconate (Calcium Gluconate Inj) 1 gm IV.PUSH ONCE PRN PRN Reason: Magnesium Toxicity Citric Acid/Sodium Citrate (Sodium Citrate/Citric Acid Liq) 30 ml PO VEST BUSHELER REPLACED BY [facility] Stop: 03/10/18 07:59 Diphenhydramine HCl (Benadryl) 50 mg PO Q6H PRN PRN Reason: MILD TO MODERATE ITCHING Stop: 03/07/18 11:50 Last Admin: 03/07/18 00:31 Dose: 50 mg Diphenhydramine HCl (Benadryl Inj) 25 mg IV.PUSH Q6H PRN PRN Reason: MILD TO MODERATE ITCHING Stop: 03/07/18 11:50 Diphtheria/Pertussis/Tetanus Vacc (Boostrix Vaccine Inj) 0.5 ml IM .ONCE ONE Stop: 03/07/18 16:01 Hydromorphone HCl (Dilaudid Pf Inj) 0.2 mg IV.PUSH Q20M PRN PRN Reason: PAIN 5-10;IF UNABLE TO TAKE PO Last Admin: 03/06/18 10:45 Dose: 0.2 mg Lactated Ringer's (Lr 1000 Ml Inj) 1,000 mls @ 100 mls/hr IV.CONT .Q10H REPLACED BY [facility] Last Admin: 03/07/18 07:37 Dose: Not Given Cefazolin Sodium/Dextrose (Ancef 2 Gm Premix Inj) 2 gm in 50 mls @ 100 mls/hr IV.SIG VEST BUSHELER PRN PRN Reason: PRIOR TO PROCEDURE Stop: 03/10/18 07:55 Lactated Ringer's (Lr 1000 Ml Inj) 1,000 mls @ 150 mls/hr IV.CONT .Q6H40M REPLACED BY [facility] Last Admin: 03/07/18 06:06 Dose: Not Given Lactated Ringer's (Lr 1000 Ml Inj) 1,000 mls @ 100 mls/hr IV.CONT .Q10H REPLACED BY [facility] Stop: 03/07/18 11:08 Last Admin: 03/07/18 05:05 Dose: Not Given Oxytocin (Pitocin 30 Units/Ns 500 Ml Premix) 30 units in 500 mls @ 100 mls/hr IV.SIG UNSCH PRN PRN Reason: Heavy bleeding Ketorolac Tromethamine (Toradol Inj) 30 mg IM Q6H PRN PRN Reason: SEE LABEL COMMENTS Last Admin: 03/07/18 06:07 Dose: 30 mg Ketorolac Tromethamine (Toradol) 10 mg PO Q6H PRN PRN Reason: BREAKTHROUGH PAIN Measles/Mumps/Rubella Vaccine Live (M-M-R Ii Vaccine Inj) 0.5 ml SQ .ONCE ONE Stop: 03/07/18 16:01 Miscellaneous Information ([facility] Nursing Information) 1 each OTHER UNSCH PRN PRN Reason: SEE LABEL COMMENTS Stop: 03/07/18 11:50 Miscellaneous Information ([facility] Nursing Information) 1 each OTHER UNSCH PRN PRN Reason: SEE LABEL COMMENTS Stop: 03/07/18 11:50 Naloxone HCl (Narcan Inj) 0.4 mg IV.PUSH UNSCH PRN PRN Reason: SEE LABEL COMMENTS Stop: 03/07/18 11:50 Ondansetron HCl (Zofran Odt) 4 mg PO Q6H PRN PRN Reason: NAUSEA OR VOMITING Last Admin: 03/04/18 21:24 Dose: 4 mg Ondansetron HCl (Zofran Inj) 4 mg IV.PUSH Q6H PRN PRN Reason: NAUSEA OR VOMITING Oxycodone/Acetaminophen (Percocet 5/325 Mg) 1 tab PO Q4H PRN PRN Reason: PAIN SCALE 3 TO 5 Oxycodone/Acetaminophen (Percocet 5/325 Mg) 2 tab PO Q4H PRN PRN Reason: PAIN SCALE 6 TO 10 Last Admin: 03/07/18 05:06 Dose: 2 tab Vit/Calcium/Iron/Folic Ac (Stuartnatal Plus 3) 1 tab PO DAILY REPLACED BY [facility] Last Admin: 03/06/18 08:20 Dose: Not Given Senna/Docusate Sodium (Roseanna-Colace) 2 tab PO Q12H PRN PRN Reason: CONSTIPATION Simethicone (Mylicon Chew) 80 mg PO QID PRN PRN Reason: FLATULENCE Sodium Chloride (Ns Flush) 2 ml IV.FLUSH BID REPLACED BY [facility] Last Admin: 03/07/18 08:06 Dose: Not Given Sodium Chloride (Ns Flush) 2 ml IV.FLUSH PRN PRN PRN Reason: FLUSH AFTER USING IV ACCESS Zolpidem Tartrate (Ambien) 10 mg PO HS REPLACED BY [facility] Last Admin: 03/07/18 01:58 Dose: Not Given Assessment and Plan - Diagnosis (1) Cholestasis during Code(s): O26.619 - Liver and biliary tract disorders in , unspecified trimester; K83.1 - Obstruction of bile duct Status: Acute (2) Dichorionic diamniotic twin gestation Code(s): O30.049 - Twin , dichorionic/diamniotic, unspecified trimester Status: Acute (3) History of in vitro fertilization Code(s): Z98.890 - Other specified postprocedural states Status: Chronic - Plan 32 yo with di/di twin at 33w5d, EDC 04/18/18 by IVF, admit for cholestasis of with severe symptoms. 1) cholestasis of : repeat labs ordered on admission, bile acids 26.1 on 02/25/18, AST 342, ALT 463; d/w pt risks to fetuses and recommendation for early delivery, based on severity may need to be delivered within next few days ; MFM consult ordered, continue Urosodiol and increase to TID; NPO for now pending MFM recommendations 2) di/di twin , product of IVF: pt desires with BTL, consents signed. Will deliver today if MFM states deliver now. 3) GBS unknown, will order on admission 4) PPX: SCDs ordered 5) status: Strip is Cat 1 for both babies. 6) dispo: does not meet discharge criteria Will check am labs and follow up on MFM consult later today. 8:30 am Discussed case with perinatologist Dr. Schreiber. Discussed possibility of superimposed pre eclampsia as unlikely given normal blood pressures, lack of proteinuria. Not HELLP with normal platelets. Discussed primary liver condition as a possibility, given history of gastric bypass and increased risk of subsequent liver ischemia with . Has had gallbladder previously removed but will get ultrasound of liver. Dr. Schreiber does not feel that straight forward cholestasis of merits delivery before 37 weeks. However, he acknowledges that the LFTs are higher than with most cases of cholestasis of ; that there is growth discordancy exceeding 20%, and that with the history of gastric bypass a primary liver disease must be considered. Therefore agrees with section after this morning's dose of beta methasone has had 24 hours to effect lung maturity. Will get liver sonogram and repeat LFTs today. Will stick with section unless any signs of or maternal decompensation develop in the interim. discussed in extensive detail with Margaret and her family and they agree with plan of action. will give fioricet for her headache. 03/05/18 18:00 condition stable and reasonable to wait until morning for section after 24 hours post second dose of steroids with bilateral salpingectomy planned for 10:00am risks, benefits, expectations have been reviewed. 03/07/18 POD#1, doing better with TORADOL for pain, LFTs improving slowly, will increase activity, is ambulatory, voiding well. Discharge Planning: POD#3
[2018-03-07] MEDS: Prenatal Vit/Ca/Iron/Folic Acid Tablet PO SCH (09:30)
[2018-03-07] MEDS: Senna/Docusate Sodium 8.6/50 MG Tablet PO PRN (14:09)
[2018-03-07] MEDS ORDERED: Diphtheria/Tetanus/Pertussis Vaccine Inj 0.5 ML Syringe IM ONE (16:00)
[2018-03-07] MEDS ORDERED: Measles/Mumps/Rubella Vaccine Inj 0.5 ML Vial SQ ONE (16:00)
[2018-03-07] MEDS: Ketorolac 10 MG Tablet PO PRN (18:57)
[2018-03-08] MEDS: Ketorolac 10 MG Tablet PO PRN ×3 (01:21→12:40)
[2018-03-08] MEDS: Senna/Docusate Sodium 8.6/50 MG Tablet PO PRN (04:36)
[2018-03-08 06:55] LABS: Albumin 2.1 g/dL (3.4-5.0)
[2018-03-08 06:57] LABS: Total Protein 5.8 g/dL (6.4-8.2)
[2018-03-08] MEDS: Prenatal Vit/Ca/Iron/Folic Acid Tablet PO SCH (12:17)
[2018-03-08] MEDS ORDERED: Bisacodyl 10 MG Supp RECTAL ONE (12:30)
--- NOTE | 2018-03-08 14:20 | P.PNOB ---
Subjective Post op day: 2 Interval history: Doing better Tolerating diet Pain is well controlled. Babies are doing great in the NICU. Objective Vital Signs/I&O: Vital Signs 03/07/18 20:00 03/07/18 23:23 03/08/18 03:29 Temperature 97.7 F Pulse Rate 100 H Respiratory Rate 20 18 16 Blood Pressure 113/72 03/08/18 03:31 03/08/18 03:32 03/08/18 08:00 Temperature 97.9 F Pulse Rate 78 Respiratory Rate 16 18 20 Blood Pressure 116/74 Result Diagrams: 03/06/18 04:56 03/04/18 10:43 Objective Remarks: GENERAL: Well-nourished, well-developed patient. CARDIOVASCULAR: Regular rate and rhythm without murmurs, gallops, or rubs. RESPIRATORY: Breath sounds equal bilaterally. No accessory muscle use. ABDOMEN/GI: Abdomen soft, non-tender, bowel sounds present. Incision: Clean, dry and intact. Fundus: Firm, non-tender at umbilicus. GENITOURINARY: Light to moderate bleeding. EXTREMITIES: No cyanosis or edema, non-tender, without signs of DVT. Assessment and Plan - Plan Discharge Planning: POD#3 Elevated LFTs and will check in am. Continue with care. Will work on stay close quarters as the twins will be here for some time.
[2018-03-08] MEDS ORDERED: Sod Phosphate/Sod Biphosphate (Adult) Enema 133 ML Bottle RECTAL ONE (14:35)
[2018-03-09] MEDS: Prenatal Vit/Ca/Iron/Folic Acid Tablet PO SCH (09:38)
--- NOTE | 2018-03-09 12:46 | P.PNOB ---
Subjective Post op day: 3 Interval history: Doing well today Feeling park blue today. Never had a problem before. My 2 kids at home need me. Tolerating diet well. Pain is well controlled Twins continue to do well. Objective Vital Signs/I&O: Vital Signs 03/08/18 20:00 03/09/18 08:01 Temperature 98.3 F 97.6 F Pulse Rate 73 76 Respiratory Rate 20 17 Blood Pressure 142/85 H 135/80 Result Diagrams: 03/09/18 15:39 03/09/18 15:39 Objective Remarks: GENERAL: Well-nourished, well-developed patient. ABDOMEN/GI: Abdomen soft, non-tender, bowel sounds present. Incision: Clean, dry and intact. Fundus: Firm, non-tender at umbilicus. GENITOURINARY: Light to moderate bleeding. EXTREMITIES: No cyanosis or edema, non-tender, without signs of DVT. Assessment and Plan - Plan Discharge Planning: POD#3 Elevated LFTs and will check in today Continue with care. Will keep until tomorrow as she was very ill and she had markedly elevated LFTs
[2018-03-09 16:30] LABS: Baso % (Auto) 0.2 % (0.0-2.0); Eos # (Auto) 0.2 th/mm3 (0.0-0.4); Eos % (Auto) 2.5 % (0.0-4.0); Hematocrit 32.2 % (35.0-46.0); Hemoglobin 10.8 gm/dL (11.6-15.3); Lymph # (Auto) 1.4 th/mm3 (1.0-4.8); Lymph % (Auto) 17.1 % (9.0-44.0); Mean Corpuscular HGB Conc 33.7 % (32.0-36.0); Mean Corpuscular Hemoglobin 31.6 pg (27.0-34.0); Mean Corpuscular Volume 93.8 fL (80.0-100.0); Mean Platelet Volume 9.2 fL (7.0-11.0); Mono # (Auto) 0.6 th/mm3 (0.0-0.9); Mono % (Auto) 6.7 % (0.0-8.0); Neut # (Auto) 6.2 th/mm3 (1.8-7.7); Neut % (Auto) 73.5 % (16.0-70.0); Platelet Count 207 th/mm3 (150-450); Red Blood Count 3.43 mil/mm3 (4.00-5.30); Red Cell Distribution Width 14.4 % (11.6-17.2); White Blood Count 8.4 th/mm3 (4.0-11.0)
[2018-03-09 16:53] LABS: Alanine Aminotransferase 248 U/L (10-53); Albumin 1.9 g/dL (3.4-5.0); Anion Gap 8 meq/L (5-15); Aspartate Aminotransferase 110 U/L (15-37); Blood Urea Nitrogen 23 mg/dL (7-18); Calcium 7.9 mg/dL (8.5-10.1); Carbon Dioxide 28.1 meq/L (21.0-32.0); Chloride 105 meq/L (98-107); Glomerular Filtration Rate Greater Than 89 mL/min (>89); Glucose,Random 74 mg/dL (74-106); Potassium 3.9 meq/L (3.5-5.1); Sodium 141 meq/L (136-145)
[2018-03-09 16:55] LABS: Alkaline Phosphatase 129 U/L (45-117); Total Protein 5.3 g/dL (6.4-8.2)
[2018-03-09] MEDS ORDERED: Aluminum/Magnesium/Simethacone Susp 30 ML UDC PO PRN (17:58)
[2018-03-10 07:42] VITALS: BP 116/70; PULSE 74; RESP 16
[2018-03-10 07:43] VITALS: TEMP 97.6
[2018-03-10] MEDS: Hydrocortisone 1% Lotion 120 ML Bottle TOPICAL SCH ×2 (09:30→13:07)
[2018-03-10] MEDS ORDERED: Measles/Mumps/Rubella Vaccine Inj 0.5 ML Vial SQ ONE (13:15)
--- NOTE | 2018-03-20 16:12 | MP ---
cc: Mckenzie Leach MD DATE OF OPERATION: 03/06/2018 PREOPERATIVE DIAGNOSES: A 32 and 6/7 week twin intrauterine with growth discordancy and severe maternal cholestasis of . POSTOPERATIVE DIAGNOSES: A 32 and 6/7 week twin intrauterine with growth discordancy and severe maternal cholestasis of , delivered. PROCEDURE PERFORMED: Primary low transverse segment section and bilateral fimbriectomy. ANESTHESIA: Spinal with Duramorph. SURGEON: Mckenzie Leach MD. EGG CRATER: Angela Neumann, third year medical student. FINDINGS: The patient had been admitted with mildly elevated blood pressure, 3+ protein in the urine, swelling, severe pruritus and LFTs that were going up significantly on a daily basis. Her bile acids were in the 60s. The decision was to proceed with surgery due to the risk of cholestasis and the fact that there was significant discordancy. This had been reviewed with the family in detail and they had chosen to have a tubal ligation at the same time. She was taken to the operating room, administered a spinal with Duramorph, prepped and draped in the usual sterile fashion in a dorsal supine position with weight off the vena cava. Sequential stockings were on and she had a Smith catheter in place. After assuring adequate analgesia and after getting 2 grams of Ancef, a Pfannenstiel incision was made with a knife and carried down through to the rectus fascia. The rectus fascia was incised with a knife and carried off the rectus muscle. The rectus muscle was entered in the midline. Parietal peritoneum was entered sharply and a bladder flap was created off the lower uterine segment. A low transverse incision was made into the intrauterine cavity and bluntly extended in the midline and twin A female was delivered from cephalic position with thick meconium at this young age. She was quickly bulb suctioned on the abdomen. Cord was allowed to pulse for 45 seconds and then it was clamped x2, cut, and she was handed to the neonatology team in attendance. Cord gas and cord blood were obtained. Then, B was delivered from footling breech with clear fluid noted and he also had his cord gas and cord blood obtained. Once both babies were off the field and do note that baby B, the breech did have 45 seconds delayed clamping of the cord. Then, the placentas were delivered intact with a 3-vessel cord each and handed off. Uterus was exteriorized, cleaned with a lap sponge and closed with chromic in a running interlocking fashion with a second horizontal imbricating layer. Then, the right tube was grasped and dissected away from the mid ampullary portion distal, removing all of the fimbria from the ovary and the adnexa. This was repeated on the opposite side. Both were sent for pathologic confirmation. The incision was evaluated for hemostasis. The uterus was placed in the peritoneal cavity. Irrigation was performed. Then the rectus muscles were approximated with a running stitch. The fascia was closed with #1 Vicryl. Subcutaneous layer was closed with 3-0 plain and the skin was closed with 4-0 Vicryl on a Natanael needle. Estimated blood loss was 800 mL. Sponge, instrument, and needle counts were correct. Mom and babies tolerated the procedure well and went to the recovery room in stable condition. Mckenzie Leach MD PPC/ct , 03:24 PM , 03:34 PM MTDMarcial
== END 2018-03-10 13:19 | disposition home or self-care (01) ==
LOC: H2E 09:44 → H1EA 03-06 12:13
PROVIDERS: ADMIT Obstetrics & Gynecology; ATTEND Obstetrics & Gynecology